=== PATIENT | male | born 1995 | race Caucasian/White ===

== ENCOUNTER 2022-02-03 18:38 | Emergency (ER) | payer OTHER ==
[~2022-02-03] VITALS: Ht 177.8 cm; Wt 83.5 kg
[2022-02-03 18:49] VITALS: BP 127/90
--- NOTE | 2022-02-03 19:30 | NUR ---
received in bed 12 WITH C/O DIFFICALTY BREATHING, HEADACHE , HANDS, FEET NUMBNESS X 4 DAYS. O2 SAT 100%, P 111 AT THIS TIME.. [facility] [employer] [facility] = ST WITH RATE 124. PT STATES "I DON'T FEEL WELL" SEEN BY URGENT CARE YESTERDAY: EKG NORMAL. PMH: DENIES
--- NOTE | 2022-02-03 20:44 | NUR ---
DR PEACE AT BEDSIDE FOR EXAM
[2022-02-03] MEDS ORDERED: NACL 0.9% 1,000 ML IV ONE (21:00)
[2022-02-03] MEDS ORDERED: LORazepam 2 MG/ML VIAL IVP ONE (21:00)
[2022-02-03 21:01] LABS: BASOPHILS % (AUTO) 0.4 % (0.0-2.0); EOSINOPHILS # (AUTO) 0.1 K/uL (0-0.4); EOSINOPHILS % (AUTO) 1.1 % (0.0-4.0); HEMATOCRIT 45.2 % (36-52); HEMOGLOBIN 15.5 g/dL (12.0-18.0); LYMPHOCYTES # (AUTO) 1.6 K/uL (2.0-11.5); LYMPHOCYTES % (AUTO) 14.7 % (20.5-51.1); MEAN CORPUSCULAR HEMOGLOBIN 28 pg (27-31); MEAN CORPUSCULAR HGB CONC 34 g/dL (33-37); MEAN CORPUSCULAR VOLUME 80.6 fL (80-94); MONOCYTES # (AUTO) 0.8 K/uL (0.8-1.0); MONOCYTES % (AUTO) 7.1 % (1.7-9.3); NEUTROPHILS # (AUTO) 8.2 K/uL (1.8-7.7); NEUTROPHILS % (AUTO) 76.7 % (42.2-75.2); PLATELET COUNT (AUTO) 307 K/uL (140-450); RED BLOOD CELL COUNT(AUTO) 5.61 MIL/uL (4.20-6.10); RED CELL DISTRIBUTION WIDTH 13.9 % (11.6-13.7); WHITE BLOOD COUNT (AUTO) 10.7 K/uL (4.8-10.8)
[2022-02-03 21:23] LABS: ALBUMIN 4.4 g/dL (3.4-5.0); ANION GAP 15.3 (8-16); CARBON DIOXIDE 24.4 mmol/L (21-32); CREATININE 1.3 mg/dL (0.6-1.3); POTASSIUM 3.7 mmol/L (3.5-5.1); TOTAL BILIRUBIN 0.6 mg/dL (0.0-1.0)
[2022-02-04 00:30] VITALS: BP 127/90
--- NOTE | 2022-02-04 00:30 | NUR ---
Patient discharged with v/s stable. Written and verbal after care instructions given and explained. Patient verbalized understanding. Ambulatory with steady gait. All questions addressed prior to discharge. Advised to follow up with PMD.
--- NOTE | 2022-02-06 11:17 | NUR ---
LATE ENTRY- IV NORMAL SALINE DISCONTINUED AT 0030.
== END 2022-02-04 00:30 | disposition home or self-care (01) ==
LOC: MED 18:38
DX: R07.9 Chest pain, unspecified (principal); F43.20 Adjustment disorder, unspecified
CPT/HCPCS: 36415; 71045; 80053; 85025; 93005; 96361; 96374; 99285; J2060; Q0092